=== PATIENT | male | born 1980 | race Caucasian/White ===

== ENCOUNTER 2017-04-07 18:12 | Emergency (ER) | payer OTHER ==
[~2017-04-07] VITALS: Ht 180.3 cm; Wt 88.9 kg
[~2017-04-07 18:12] MED LIST: ACET-1256 PO
[2017-04-07 18:17] VITALS: TEMP 36.7; Ht 180.3 cm; Wt 88.9 kg
[2017-04-07] MEDS ORDERED: HYDR-5688 PO (18:38)
[2017-04-07 18:47] VITALS: BP 141/91; PULSE 86; O2SAT 96
--- NOTE | 2017-04-08 16:39 | EMERGENCY ROOM VISIT NOTE ---
ED Visit Note First contact with patient: 18:21 Chief Complaint: I accidentally burned my right arm. History of Present Illness: Mr. Kelley is a 36-year-old white male who ambulates into the ED complaining of a thermal burn to the anterior aspect of the right forearm. Patient reports he accidentally sustained a burn injury to the right forearm 2 days ago when his arm touched his car's exhaust pipe. He reports there was a blister formation on the burn but that ruptured today while he was at work. Currently he is complaining of a burning and stinging pain in the area of his thermal burn which is in the mid forearm area. He has been using Tylenol and ibuprofen without relief of his discomfort. Review of Systems: As noted above in history of present illness. Past Medical History: Unspecified bleeding. Current Medications: Patient denies. Allergies to Medications: Patient denies. Social History: Patient is currently employed; he feels safe in his home environment; he admits to tobacco use and denies alcohol use. Tetanus Immunization Status: Patient reports up-to-date. Physical Examination: Vital Signs: Date Time Temp Pulse Resp B/P Pulse Ox O2 Delivery O2 Flow Rate FiO2 04/07/17 18:47 86 16 141/91 96 04/07/17 18:17 36.7 86 16 141/91 96 Room Air GENERAL: 36-year-old male in mild distress due to pain, nontoxic-appearing, afebrile and hemodynamically stable. NEUROLOGICAL: Awake, alert and oriented to person, place and time. Answering questions appropriately and following commands. SKIN: Warm, dry and pink. Right Forearm: Patient has an oval/brownish partial thickness burn to the anterior forearm approximately 3 cm in diameter. The wound does appear to have a blister which has subsequently ruptured. There is no local erythema or edema. There is no lymphangitis. RIGHT UPPER EXTREMITY: Thermal burn as noted above under SKIN. No gross bony deformities. Full range of motion in flexion and extension of the elbow, pronation and supination of forearm and flexion and extension of the wrist. All distal neurovascular statuses are intact and equal bilaterally. ED Course: Patient is assessed as noted above. Patient's wound was cleansed with antibacterial soap and water and covered with a bacitracin dressing. Patient was educated about today's findings and instructed on his treatment plan ; he verbalizes understanding and agreement with this plan. Clinical Impression: Partial-thickness thermal burn on the right forearm. Less than 1% body surface area. Disposition: Patient discharged home in stable condition; prior to departure he was reassessed and subjectively reported he was feeling better and rated his discomfort 3/10. Plan: Comfort measures, wound care and signs of infection were discussed with the patient. Patient was prescribed [place] for pain and educated on achieves as well as precautions. His name was also reviewed in the state database and no red flags were noted. Patient was encouraged to follow-up with his PCP or return to the ED in 36-48 hours for recheck. Patient was encouraged return the ED for worsening/uncontrolled pain, any signs of infection or any new/concerning symptoms.
== END 2017-04-07 18:47 | disposition home or self-care (01) ==
LOC: C.EDB 18:13 → C.EDD 18:47
DX: T22.011A Burn of unspecified degree of right forearm, initial encounter (principal); X17.XXXA Contact with hot engines, machinery and tools, initial encounter; F17.200 Nicotine dependence, unspecified, uncomplicated

== ENCOUNTER 2017-04-12 18:01 | Emergency (ER) | payer OTHER ==
[~2017-04-12] VITALS: Ht 180.3 cm; Wt 91.0 kg
[~2017-04-12 18:01] MED LIST changes: +HYDR-5688 PO
[2017-04-12 18:03] VITALS: BP 155/101; PULSE 80; TEMP 36.7; O2SAT 96; Ht 180.3 cm; Wt 91.0 kg
[2017-04-12] MEDS ORDERED: HYDR-5688 PO (18:19)
--- NOTE | 2017-04-13 23:45 | EMERGENCY ROOM VISIT NOTE ---
ED Visit Note First contact with patient: 18:07 Chief Complaint: Right arm burn. History of Present Illness: Mr. Kelley is a 36-year-old white male who ambulates into the ED for a recheck of a right arm burn that he thinks may be infected. I had seen this patient on April 07 for an injury he received when he sustained a thermal burn to the right forearm when he accidentally touched the tailpipe. This was a partial-thickness burn and just prior to coming to the hospital he ruptured the blister. He was discharged home in stable condition with pain medications and encouraged to return for recheck or any other concerning symptoms. Patient reports after being discharge in the emergency department he reports he was feeling well and was not having a lot of complications. He did not feel he needed to come in for his 2 day recheck. He reports earlier today he was playing with his dog and his dog jumped on his arm and dramatically scraped off his scab. He looked under the scab and the skin was red and he felt he might have an infection which is what prompted his ED visit today. Additionally he reports since the dog scratched off the scab he has return of a burning sensation of his wound. He rates his discomfort 10/10. The pain is nonradiating. The pain worsens with palpation. He has not identified any alleviating factors related to the pain. He reports he took Tylenol without relief of his discomfort. He denies any associated symptoms including fevers, chills, sweats, other skin eruptions, red streaking, puslike drainage, shortness of breath, chest pain, abdominal pain, decreased appetite, nausea/ vomiting, arm weakness/numbness/tingling. Review of Systems: As noted above in history of present illness. 8 body systems were reviewed and found to be negative as noted above. Past Medical History: Unspecified bleeding. Current Medications: Patient denies. Allergies to Medications: Patient denies. Social History: Patient is currently employed; he feels safe in his home environment; he admits to tobacco use and denies alcohol use. Tetanus Immunization Status: Patient reports up-to-date. Physical Examination: Vital Signs: Date Time Temp Pulse Resp B/P Pulse Ox O2 Delivery O2 Flow Rate FiO2 04/12/17 18:03 36.7 80 18 155/101 96 Room Air GENERAL: 36-year-old male in moderate distress due to pain, nontoxic-appearing, afebrile and hemodynamically stable. NEUROLOGICAL: Awake, alert and oriented to person, place and time. Answering questions appropriately and following commands. SKIN: Warm, dry and pink. Right Forearm: Healing thermal burn. Skin is slightly red but is not warm to the touch and the skin does not appear cellulitic. No lymphangitis. No purulent drainage. THORAX: Lungs sounds are clear to auscultation and equal bilaterally with symmetrical chest wall. No wheezing, rales or rhonchi. ABDOMEN: Flat, soft and nontender. Positive bowel sounds in all quadrants. No guarding, rigidity or organomegaly. RIGHT UPPER EXTREMITY: Please see soft tissue is noted above under SKIN. No gross bony deformity. No tenderness in the joints. Full range of motion of the joints. Distal pulses, sensation and capillary refill is intact. ED Course: Patient is assessed as noted above. Patient's wound was cleansed with antibacterial soap and water and covered with a bacitracin dressing. Patient was educated about today's findings and instructed on his treatment plan ; he verbalizes understanding and agreement with this plan. Clinical Impression: Healing partial thickness burn to the right forearm. Disposition: Patient discharged home in stable condition; prior to departure he was reassessed and subjectively reported he was feeling better and rated his discomfort 7/10. Plan: Wound care and signs of infection were discussed with the patient. Patient was placed on a sliding pain medication scale of ibuprofen, acetaminophen and [place]. Patient was encouraged to follow-up with family physician or return to the ED for any signs of infection or any new/concerning symptoms.
== END 2017-04-12 18:28 | disposition home or self-care (01) ==
LOC: C.EDB 18:03 → C.EDD 18:28
DX: T22.011A Burn of unspecified degree of right forearm, initial encounter (principal); F17.200 Nicotine dependence, unspecified, uncomplicated; X19.XXXA Contact with other heat and hot substances, initial encounter